=== PATIENT | female | born 1980 | race Caucasian/White ===

== ENCOUNTER 2016-12-07 19:42 | Emergency (ER) | payer SELFPAY ==
[~2016-12-07 19:42] MED LIST: ALEVE PO; ALLEGRA PO; AMOXICILLIN PO; AMOXIL500 M2 PO; BACITRACIN15 GM TOP; BACTRIM DS TABL1 TAB PO; BACTROBAN15 GM TOP; BENZONATATE PO; CELEXA PO; DOLOBID500 MG PO; EC-NAPROSYN500 MG PO; ENTEX PO; FLAGYL PO; FLEXERIL10 MG PO; FLONASE16 GM; GUAIFEN-P-EPHE480 ML PO; HYDROCORTISONE30 G1 TOP; IBUPROFEN PO; IBUPROFEN400 MG PO; IBUPROFEN800 MG PO; LORTAB 7.5-5001 TAB PO; MEDROL PO; METFORMIN HCL500 M1 PO; NO MEDICATIONS; NORCO1 TAB 10/3 PO; PHENERGAN DM1 ML PO; PHENERGAN PO; PHENERGAN PR; PREDNISONE PO; PRENATAL MULITV1 TAB PO; PROCARDIA PO; TAMIFLU75 M1 PO; TUSSIONEX PENN473 ML PO; ULTRAM PO; VICODIN 5/500 T1 TAB PO; VOLTAREN75 MG PO; ZANTAC PO; ZITHROMAX; ZITHROMAX PO; ZOFRAN PO
[2016-12-07 19:50] LABS: INFLUENZA A NEG (NEG); INFLUENZA B NEG (NEG)
== END 2016-12-07 20:18 | disposition home or self-care (01) ==
LOC: SED 19:42
PROVIDERS: Nurse Practitioner
DX: B34.9 Viral infection, unspecified (principal); F17.210 Nicotine dependence, cigarettes, uncomplicated; Z90.49 Acquired absence of other specified parts of digestive tract; Z98.51 Tubal ligation status
CPT/HCPCS: 87804; 99282

== ENCOUNTER 2017-02-01 16:27 | Emergency (ER) | payer BC ==
--- NOTE | ~2017-02-01 | CR2 ---
[facility] A Service of [facility] / [facility] RADIOLOGY TEXT RESULTS PATIENT: JEAN CLAUDE JOHNSON LOCATION: SED : 76 UNIT #: [id number] AGE: [address]: Edgar Bustillo MD SEX: F ORDER DR: [id number] [address] [address] [id number] E MR#: [id number] Acc #: [id number] NAME: JEAN CLAUDE JOHNSON : 1980 SEX: F STUDY DATE/TIME: 02/01/2017 18:04 UNIT: SED ROOM: STUDY DESCRIPTION: CR Abdomen Acute Series Attending Physician: Edgar Bustillo M.D. Ordering Physician: Edgar Bustillo M.D. [facility] MEDICAL IMAGING REPORT This report is preliminary unless electronic signature is present. EXAM Acute abdomen series 02/01/2017 HISTORY Epigastric pain onset today. TECHNIQUE A single view of the chest was obtained with flat and upright views the abdomen. FINDINGS Single frontal view of the chest taken at the time of the abdominal examination is within normal limits. AP, supine, and upright examination of the abdomen shows a normal gas and fecal pattern distribution throughout large and small bowel without distended loops in either area. There is no indication of extraluminal air, unusual visceromegaly, or soft tissue density mass. The renal definitions are fairly well demarcated and normal in shape and size. No abnormal intra-abdominal calcifications are present. IMPRESSION Normal acute abdomen series. Dictated by... Donovan Chaparro M.D. THIS IS AN ELECTRONICALLY VERIFIED REPORT Donovan Chaparro M.D. at 02/03/2017 12:41 PM RLF/yeni TD: 02/01/2017 18:51 [facility] A Service [facility] RADIOLOGY TEXT RESULTS PATIENT: JEAN CLAUDE JOHNSON LOCATION: SED : 76 UNIT #: [id number] AGE: [address]: Edgar Bustillo MD SEX: F ORDER DR: JOB #: [id number] MEDICAL IMAGING REPORT Page 1 of 1
[2017-02-01] MEDS ORDERED: NO MEDICATIONS (16:48)
[2017-02-01 17:34] LABS: URINE SOURCE CLEAN CATCH
[2017-02-01 17:36] LABS: URINE APPEARANCE CLEAR; URINE BILIRUBIN NEG (NEG); URINE BLOOD NEG (NEG); URINE COLOR YELLOW; URINE GLUCOSE NEG (NORM); URINE KETONE NEG (NEG); URINE LEUKOCYTE ESTERASE NEG (NEG); URINE NITRATE NEG (NEG); URINE PH 6.5 (5-8); URINE PROTEIN NEG (NEG); URINE SPECIFIC GRAVITY <=1.005 (1.003-1.035); URINE UROBILINOGEN 0.2 MG/DL (NORM)
[2017-02-01 17:37] LABS: MICRO INDICATED? NO
== END 2017-02-01 19:05 | disposition home or self-care (01) ==
LOC: SED 16:27
PROVIDERS: Emergency Medicine
DX: K29.00 Acute gastritis without bleeding (principal); F17.200 Nicotine dependence, unspecified, uncomplicated; Z90.49 Acquired absence of other specified parts of digestive tract; Z88.0 Allergy status to penicillin; Z88.5 Allergy status to narcotic agent
CPT/HCPCS: 74022; 81003; 84703; 99284

== ENCOUNTER 2017-05-20 11:54 | Emergency (ER) | payer OTHER ==
[~2017-05-20] VITALS: Ht 160 cm; Wt 75.7 kg
[2017-05-20] MEDS ORDERED: HYDROCODON-ACE1 EA14 (12:12)
== END 2017-05-20 13:48 | disposition home or self-care (01) ==
LOC: SED 11:54
DX: J20.9 Acute bronchitis, unspecified (principal); J06.9 Acute upper respiratory infection, unspecified; Z90.49 Acquired absence of other specified parts of digestive tract; Z98.51 Tubal ligation status; Z88.0 Allergy status to penicillin; Z88.1 Allergy status to other antibiotic agents
CPT/HCPCS: 99283